=== PATIENT | male | born 1995 | race African-American/Black ===

== ENCOUNTER 2017-01-15 11:43 | Inpatient (IN) ==
[~2017-01-15 11:43] MED LIST: CALCIUM CHLORIDE 1,000 MG/10 ML SYRINGE IV ONE; CALCIUM GLUCONATE 1,000 MG/10 ML VIAL IV ONE
[2017-01-15] MEDS ORDERED: VANCOMYCIN 1,000 MG VIAL ONE ×2 (11:56→12:33)
[2017-01-15] MEDS ORDERED: TISSUE ADHESIVE 1 EACH APPLICATOR TOP ONE (11:56)
[2017-01-15] MEDS ORDERED: PAPAVERINE 60 MG/2 ML VIAL ONE (11:56)
[2017-01-15] MEDS ORDERED: PROPOFOL 1,000 MG/100 ML BOTTLE IV ONE (11:59)
[2017-01-15 12:06] LABS: Basophils % 0.5 % (0.0-0.8); Eosinophils # 0.2 10*3/uL (0.0-0.87); Eosinophils % 3.6 % (0.00-10.9); Hematocrit 30.2 VOL% (42.0-52.0); Hemoglobin 10.2 GM/DL (14.0-18.0); Immature Granulocytes % 0.3 %; Immature Granulocytes Absolute 0.02 #; Lymphocytes # 3.8 10*3/uL (1.4-4.0); Lymphocytes % 65.4 % (21.2-54.2); Mean Corpuscular HGB Conc 33.8 GM/DL (32-36); Mean Corpuscular Hemoglobin 32 PG (27-34); Mean Corpuscular Volume 93.2 FL (87-102); Mean Platelet Volume 9.8 FL (9.6-12.0); Monocytes # 0.5 10*3/uL (0.11-0.8); Neutrophils # 1.2 10*3/uL (1.4-7.4); Neutrophils % 21.2 % (38.7-73.9); Platelet Count 186 T/CUMM (130-400); Red Blood Count 3.24 MC/CUMM (3.8-5.5); White Blood Count 5.8 T/CUMM (4-12)
[2017-01-15] MEDS ORDERED: DIPH/TET/ACEL PERT BOOSTER VACCINE 0.5 ML VIAL IM ONE ×2 (12:09→12:15)
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
[2017-01-15 12:22] LABS: Apearance,Urine CLEAR (Clear); Bacteria,Urine Occasional /HPF (Few); Bilirubin,Urine Negative (Negative); Blood, Urine Negative (Negative); Glucose,Urine (UA) Negative (Negative); Hyaline Casts,Urine 1 /LPF (0-3); Ketones,Urine Negative (Negative); Mucus,Urine Many /LPF (Occasional); Nitrite,Urine Negative (Negative); Protein,Urine 30 MG/DL; RBC,Urine 2 /HPF (0-4); Urine Color Yellow (Yellow); Urine Specific Gravity 1.029 (1.001-1.035); Urine Urobilinogen < 2.0 EU/DL (0.2-1.0); WBC,Urine 1 /HPF (0-6)
[2017-01-15 12:26] LABS: Eosinophils 4 % (0-10); Hypochromasia 1+; Lymphocytes 62 % (20-55); Platelet Estimate Normal; Segmented Neutrophils 24 % (50-85); Total Cells Counted 100
[2017-01-15 12:30] LABS: Alanine Aminotransferase 21 U/L (16-61); Alkaline Phosphatase 47 U/L (45-117); Amylase 51 U/L (25-115); Aspartate Amino Transferase 25 U/L (0-37); Blood Urea Nitrogen 14 MG/DL (7-18); Calcium 7.7 MG/DL (8.5-10.1); Glucose 120 MG/DL (74-106); Potassium 3.7 MMOL/L (3.5-5.1); Sodium 143 MMOL/L (136-145); Total Protein 5.2 G/DL (6.4-8.3)
[2017-01-15 12:30] LABS: Barbiturates Screen,Urine Negative (Negative); Benzodiazepines Screen,Urine Negative (Negative); Cannabinoid Screen,Urine Negative (Negative); Opiate Screen,Urine Negative (Negative); Phencyclidine Screen,Urine Negative (Negative)
[2017-01-15] MEDS ORDERED: SUCCINYLCHOLINE 200 MG/10 ML VIAL ONE (12:30)
[2017-01-15] MEDS ORDERED: ETOMIDATE 20 MG/10 ML VIAL IV ONE (12:30)
[2017-01-15 12:33] LABS: ABG Base Excess -3.3 MMOL/L (-2.5-2.5); ABG HCO3 21.7 MMOL/L (20-26); ABG Oxygen Saturation 99.6 % (95-100); ABG PH 7.422 (7.35-7.45); ABG TCO2 18.1 MMOL/L (23-27); Glucose Heart Surgery 145 MG/DL (74-106); Hematocrit Heart Surgery 34.9 PERCENT (42-52); Hemoglobin Heart Surgery 11.3 G/DL (14.0-18.0); Ionized Calcium Arterial 1.04 MMOL/L (1.21-1.46); PH Patient Temp Arterial 7.422; Patient Temperature 37 CELCIUS; Potassium Heart/CVR 3.8 MMOL/L (3.5-5.1); Sodium Heart/CVR 138 MMOL/L (135-145)
[2017-01-15] MEDS ORDERED: MEROPENEM 1,000 MG VIAL IV ONE (12:39)
[2017-01-15 13:13] LABS: ABG Base Excess -4.1 MMOL/L (-2.5-2.5); ABG Oxygen Saturation 98.4 % (95-100); ABG PCO2 43.3 MM HG (35-48); ABG PH 7.315 (7.35-7.45); ABG TCO2 19.7 MMOL/L (23-27); Glucose Heart Surgery 178 MG/DL (74-106); Hematocrit Heart Surgery 37.5 PERCENT (42-52); Hemoglobin Heart Surgery 12.2 G/DL (14.0-18.0); Potassium Heart/CVR 4.6 MMOL/L (3.5-5.1)
[2017-01-15 13:22] LABS: Basophils % 0.1 % (0.0-0.8); Eosinophils # 0.1 10*3/uL (0.0-0.87); Eosinophils % 0.9 % (0.00-10.9); Hematocrit 35.5 VOL% (42.0-52.0); Hemoglobin 12.4 GM/DL (14.0-18.0); Immature Granulocytes % 0.4 %; Immature Granulocytes Absolute 0.03 #; Lymphocytes # 1.2 10*3/uL (1.4-4.0); Lymphocytes % 14.1 % (21.2-54.2); Mean Corpuscular HGB Conc 34.9 GM/DL (32-36); Mean Corpuscular Hemoglobin 32 PG (27-34); Mean Corpuscular Volume 91.7 FL (87-102); Mean Platelet Volume 8.8 FL (9.6-12.0); Monocytes # 0.6 10*3/uL (0.11-0.8); Monocytes % 7.1 % (1.7-12.7); Neutrophils # 6.6 10*3/uL (1.4-7.4); Neutrophils % 77.4 % (38.7-73.9); Platelet Count 142 T/CUMM (130-400); Red Blood Count 3.87 MC/CUMM (3.8-5.5); Red Cell Distribution Width 13.6 % (9.3-17.3); White Blood Count 8.5 T/CUMM (4-12)
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
[2017-01-15 13:38] LABS: Albumin 2.6 G/DL (3.4-5.0); Calcium 8.4 MG/DL (8.5-10.1); INR 1.2; Magnesium 1.5 MG/DL (1.8-2.4); PT Patient Result 12.7 SECS; Partial Thromboplastin Time 26.8 SECS (0-40); Phosphorous 3.9 MG/DL (2.5-4.9)
[2017-01-15 13:44] LABS: Lactic Acid 2.9 MMOL/L (0.4-2.0)
[2017-01-15] MEDS ORDERED: LACTATED RINGERS 1,000 ML IV SCH (15:00)
[2017-01-15] MEDS ORDERED: LACTATED RINGERS 1,000 ML IV ONE ×2 (15:00→15:22)
[2017-01-15] MEDS ORDERED: PHENYLEPHRINE DRIP 40 MG/250 ML PREMIX IV ONE (15:01)
--- NOTE | 2017-01-15 15:04 | Anesthesia Post-Op ---
Anesthesia Post OP - Post Ansesthetic Evaluation Patient seen in post op: Yes Resp: within normal limits (pt remains on ventilator) CV: within normal limits Mental: within normal limits (pt remains sedate) Temp: within normal limits (not warm, have asked for warmer to be applied) Zagl-Lo-Peyzvftnb: within normal limits Nausea and Vomiting: within normal limits Pain: within normal limits
[2017-01-15 15:11] LABS: ABG Base Excess -0.6 MMOL/L (-2.5-2.5); ABG HCO3 23.8 MMOL/L (20-26); ABG PCO2 42.6 MM HG (35-48); ABG PH 7.373 (7.35-7.45); ABG PO2 70.9 MM HG (80-95); ABG TCO2 21.3 MMOL/L (23-27); Glucose Heart Surgery 128 MG/DL (74-106); Hematocrit Heart Surgery 44.1 PERCENT (42-52); Hemoglobin Heart Surgery 14.4 G/DL (14.0-18.0); Potassium Heart/CVR 5.8 MMOL/L (3.5-5.1)
[2017-01-15 15:14] LABS: Basophils % 0.1 % (0.0-0.8); Eosinophils # 0.1 10*3/uL (0.0-0.87); Eosinophils % 0.9 % (0.00-10.9); Hematocrit 40.6 VOL% (42.0-52.0); Hemoglobin 14.5 GM/DL (14.0-18.0); Immature Granulocytes % 0.4 %; Immature Granulocytes Absolute 0.03 #; Lymphocytes # 1.4 10*3/uL (1.4-4.0); Lymphocytes % 16.5 % (21.2-54.2); Mean Corpuscular HGB Conc 35.7 GM/DL (32-36); Mean Corpuscular Hemoglobin 32 PG (27-34); Mean Corpuscular Volume 89.2 FL (87-102); Mean Platelet Volume 9.3 FL (9.6-12.0); Monocytes # 0.3 10*3/uL (0.11-0.8); Monocytes % 3.3 % (1.7-12.7); Neutrophils # 6.7 10*3/uL (1.4-7.4); Neutrophils % 78.8 % (38.7-73.9); Platelet Count 181 T/CUMM (130-400); Red Blood Count 4.55 MC/CUMM (3.8-5.5); Red Cell Distribution Width 13.5 % (9.3-17.3); White Blood Count 8.5 T/CUMM (4-12)
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
[2017-01-15] MEDS ORDERED: SEVOFLURANE 1 UNIT/15 MINUTE INH ONE (15:21)
[2017-01-15] MEDS ORDERED: SODIUM CHLORIDE 0.9% 1,000 ML IV ONE (15:22)
[2017-01-15] MEDS ORDERED: MIDAZOLAM 10 MG/2 ML VIAL ONE (15:22)
[2017-01-15] MEDS ORDERED: SUFentanil 250 MCG/5 ML AMP ONE (15:22)
[2017-01-15] MEDS ORDERED: VECURONIUM 10 MG VIAL IV ONE (15:22)
[2017-01-15] MEDS: PHENYLEPHRINE DRIP 40 MG/250 ML PREMIX IV SCH (15:25)
[2017-01-15 15:36] LABS: Albumin 2.9 G/DL (3.4-5.0); Bilirubin,Total 1.6 MG/DL (0.2-1.0); Calcium 9.4 MG/DL (8.5-10.1); Osmolality,Calculated 284.1 MOS/KG (273-304); Potassium 5.9 MMOL/L (3.5-5.1); Total Protein 5.4 G/DL (6.4-8.3)
[2017-01-15 15:53] LABS: INR 1.2; PT Patient Result 12.3 SECS; Partial Thromboplastin Time 26.6 SECS (0-40)
[2017-01-15] MEDS ORDERED: ALBUMIN 5% 12.5 GM/250 ML VIAL IV ONE (16:24)
[2017-01-15] MEDS ORDERED: ONDANSETRON 4 MG/2 ML VIAL IV PRN (16:24)
[2017-01-15] MEDS ORDERED: ALBUMIN 5% 25 GM in PREMIX 1 EACH IV ONE (16:42)
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
[2017-01-15] MEDS: HYDROmorphone 2 MG/1 ML VIAL IV PRN ×2 (19:00→23:46)
[2017-01-15] MEDS ORDERED: HYDROmorphone 2 MG/1 ML VIAL IV ONE (19:23)
[2017-01-15] MEDS: PROPOFOL 1,000 MG/100 ML BOTTLE IV SCH ×3 (20:14→23:59)
[2017-01-15] MEDS: SODIUM CHLORIDE 0.9% 1,000 ML IV SCH (23:01)
[2017-01-15 23:03] LABS: ABG Base Excess 0.1 MMOL/L (-2.5-2.5); ABG HCO3 24.5 MMOL/L (20-26); ABG Oxygen Saturation 99.3 % (95-100); ABG PCO2 45.9 MM HG (35-48); ABG PH 7.361 (7.35-7.45); ABG TCO2 22.6 MMOL/L (23-27)
[2017-01-16 03:57] LABS: Basophils % 0.1 % (0.0-0.8); Eosinophils # 0.1 10*3/uL (0.0-0.87); Eosinophils % 1.5 % (0.00-10.9); Hematocrit 38.6 VOL% (42.0-52.0); Hemoglobin 13.6 GM/DL (14.0-18.0); Immature Granulocytes % 0.3 %; Immature Granulocytes Absolute 0.02 #; Lymphocytes # 0.8 10*3/uL (1.4-4.0); Lymphocytes % 9.8 % (21.2-54.2); Mean Corpuscular HGB Conc 35.2 GM/DL (32-36); Mean Corpuscular Hemoglobin 31 PG (27-34); Mean Corpuscular Volume 87.5 FL (87-102); Mean Platelet Volume 9.6 FL (9.6-12.0); Monocytes # 0.7 10*3/uL (0.11-0.8); Monocytes % 9.1 % (1.7-12.7); Neutrophils # 6.2 10*3/uL (1.4-7.4); Neutrophils % 79.2 % (38.7-73.9); Platelet Count 166 T/CUMM (130-400); Red Blood Count 4.41 MC/CUMM (3.8-5.5); Red Cell Distribution Width 13.6 % (9.3-17.3); White Blood Count 7.8 T/CUMM (4-12)
[2017-01-16 04:26] LABS: Calcium 7.9 MG/DL (8.5-10.1); Osmolality,Calculated 287.6 MOS/KG (273-304); Potassium 3.8 MMOL/L (3.5-5.1)
[2017-01-16 04:55] LABS: ABG Base Excess -0.2 MMOL/L (-2.5-2.5); ABG HCO3 24.9 MMOL/L (20-26); ABG PCO2 42.4 MM HG (35-48); ABG PH 7.387 (7.35-7.45); ABG PO2 212.1 MM HG (80-95); ABG TCO2 26.2 MMOL/L (23-27)
[2017-01-16] MEDS: PROPOFOL 1,000 MG/100 ML BOTTLE IV SCH ×5 (06:02→23:35)
[2017-01-16] MEDS: HYDROmorphone 2 MG/1 ML VIAL IV PRN ×8 (06:09→23:59)
[2017-01-16] MEDS: SODIUM CHLORIDE 0.9% 1,000 ML IV SCH ×4 (06:10→22:25)
--- NOTE | 2017-01-16 06:39 | EKG Report ---
Stationary ECG Study [facility] Test Date: 01/16/2017 6:38:03 AM Pat Name: SHELLY BALBUENA Department: Room: 112 Gender: M Employee Relations Advisor: LAURA : 1995 Requested by: Lucio Rodriguez Order Number: [id number] Reading MD: USMAN STEPHENSON Intervals [place] Rate: 82 P: 66 VT: 155 QRS: 73 QRSD: 80 T: 76 QT: 359 QTc: 398 Interpretive Statements SINUS RHYTHM EARLY REPOLARIZATION Electronically Signed On 01-16-17 12:29:22 CDT by USMAN STEPHENSON [email or web address]
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
[2017-01-16] MEDS ORDERED: MAGNESIUM SULF RIDER 4 GM in PREMIX 1 EACH IV ONE (07:31)
[2017-01-16] MEDS ORDERED: MAGNESIUM SULF RIDER 2 GM in PREMIX 1 EACH IV PRN (07:33)
[2017-01-16] MEDS ORDERED: MAGNESIUM SULF RIDER 4 GM in PREMIX 1 EACH IV PRN (07:34)
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
[2017-01-16] MEDS: PANTOPRAZOLE 40 MG VIAL IV SCH (08:32)
[2017-01-16] MEDS ORDERED: PANTOPRAZOLE 40 MG TABLET PO SCH (09:00)
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
[2017-01-16] MEDS: PHENYLEPHRINE DRIP 40 MG/250 ML PREMIX IV SCH (15:32)
[2017-01-16 22:53] LABS: Hematocrit 34.4 VOL% (42.0-52.0); Hemoglobin 12.4 GM/DL (14.0-18.0)
[2017-01-17] MEDS: HYDROmorphone 2 MG/1 ML VIAL IV PRN ×7 (02:54→22:10)
[2017-01-17 04:34] LABS: ABG Base Excess -0.1 MMOL/L (-2.5-2.5); ABG HCO3 24.6 MMOL/L (20-26); ABG Oxygen Saturation 95.1 % (95-100); ABG PCO2 40.8 MM HG (35-48); ABG PH 7.399 (7.35-7.45); ABG TCO2 25.9 MMOL/L (23-27)
[2017-01-17 04:38] LABS: Basophils % 0.2 % (0.0-0.8); Eosinophils # 0.5 10*3/uL (0.0-0.87); Eosinophils % 3.8 % (0.00-10.9); Hematocrit 33.7 VOL% (42.0-52.0); Hemoglobin 12.2 GM/DL (14.0-18.0); Immature Granulocytes % 0.6 %; Immature Granulocytes Absolute 0.07 #; Lymphocytes # 1.1 10*3/uL (1.4-4.0); Lymphocytes % 9.3 % (21.2-54.2); Mean Corpuscular HGB Conc 36.2 GM/DL (32-36); Mean Corpuscular Hemoglobin 31 PG (27-34); Mean Corpuscular Volume 86.9 FL (87-102); Mean Platelet Volume 9.4 FL (9.6-12.0); Monocytes % 8.2 % (1.7-12.7); Neutrophils # 9.6 10*3/uL (1.4-7.4); Neutrophils % 77.9 % (38.7-73.9); Platelet Count 138 T/CUMM (130-400); Red Blood Count 3.88 MC/CUMM (3.8-5.5); Red Cell Distribution Width 13.7 % (9.3-17.3); White Blood Count 12.3 T/CUMM (4-12)
[2017-01-17 05:12] LABS: Calcium 8.1 MG/DL (8.5-10.1)
[2017-01-17 05:13] LABS: Osmolality,Calculated 279.1 MOS/KG (273-304); Potassium 3.9 MMOL/L (3.5-5.1)
[2017-01-17 05:43] LABS: Band Neutrophils 8 % (0-10); Eosinophils 1 % (0-10); Hypochromasia 1+; Lymphocytes 10 % (20-55); Segmented Neutrophils 77 % (50-85); Total Cells Counted 100
[2017-01-17 05:44] LABS: Microcytosis Slight; Platelet Estimate Adequate
[2017-01-17] MEDS: PROPOFOL 1,000 MG/100 ML BOTTLE IV SCH ×4 (06:19→19:54)
[2017-01-17] MEDS: SODIUM CHLORIDE 0.9% 1,000 ML IV SCH ×4 (06:20→22:18)
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
--- NOTE | 2017-01-17 09:14 | XRay Report ---
History: Shortness of breath Date: 01/17/2017 at 3:01 AM Study: Chest x-ray AP portable Comparison exam: 01/17/2017 at 12:25 AM The endotracheal tube, nasogastric tube, and chest tubes are stable in position. There is no pneumothorax. There is persistent but improved left lower lobe atelectasis. The post traumatic/postsurgical change in the right mid to upper lung persists without change. The cardiomediastinal silhouette is similar. There is no increasing pleural effusion. Osseous structures are similar. Impression: Persistent but improved left lower lobe atelectasis. Otherwise unchanged PROCEDURE INTERPRETED AT [facility] DEPARTMENT OF RADIOLOGY Final Report Signed by: Dr. Liz Easley
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
[2017-01-17] MEDS: PANTOPRAZOLE 40 MG VIAL IV SCH (10:20)
[2017-01-18] MEDS: HYDROmorphone 2 MG/1 ML VIAL IV PRN ×6 (00:55→20:20)
[2017-01-18 03:41] LABS: ABG Base Excess 0.9 MMOL/L (-2.5-2.5); ABG HCO3 25.2 MMOL/L (20-26); ABG Oxygen Saturation 93.5 % (95-100); ABG PCO2 44.3 MM HG (35-48); ABG PH 7.381 (7.35-7.45); ABG TCO2 24.2 MMOL/L (23-27); Basophils % 0.1 % (0.0-0.8); Eosinophils # 0.3 10*3/uL (0.0-0.87); Eosinophils % 3.1 % (0.00-10.9); Hematocrit 30.3 VOL% (42.0-52.0); Hemoglobin 10.7 GM/DL (14.0-18.0); Immature Granulocytes % 0.5 %; Immature Granulocytes Absolute 0.05 #; Lymphocytes # 0.7 10*3/uL (1.4-4.0); Lymphocytes % 6.5 % (21.2-54.2); Mean Corpuscular HGB Conc 35.3 GM/DL (32-36); Mean Corpuscular Hemoglobin 31 PG (27-34); Mean Corpuscular Volume 88.1 FL (87-102); Mean Platelet Volume 9.7 FL (9.6-12.0); Monocytes # 0.7 10*3/uL (0.11-0.8); Monocytes % 6.3 % (1.7-12.7); Neutrophils # 9.1 10*3/uL (1.4-7.4); Neutrophils % 83.5 % (38.7-73.9); Platelet Count 133 T/CUMM (130-400); Red Blood Count 3.44 MC/CUMM (3.8-5.5); Red Cell Distribution Width 13.3 % (9.3-17.3); White Blood Count 10.9 T/CUMM (4-12)
[2017-01-18] MEDS: PROPOFOL 1,000 MG/100 ML BOTTLE IV SCH ×5 (04:00→20:08)
[2017-01-18 04:02] LABS: Band Neutrophils 2 % (0-10); Eosinophils 4 % (0-10); Lymphocytes 7 % (20-55); Segmented Neutrophils 84 % (50-85); Total Cells Counted 100
[2017-01-18 04:04] LABS: Anisocytosis Slight; Microcytosis Slight; Ovalocytes Few; Platelet Estimate Normal
[2017-01-18 04:13] LABS: Calcium 7.7 MG/DL (8.5-10.1); Magnesium 1.6 MG/DL (1.8-2.4)
[2017-01-18 04:14] LABS: Potassium 3.7 MMOL/L (3.5-5.1)
[2017-01-18] MEDS: SODIUM CHLORIDE 0.9% 1,000 ML IV SCH ×2 (06:23→16:38)
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
[2017-01-18] MEDS: PANTOPRAZOLE 40 MG VIAL IV SCH (08:40)
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
--- NOTE | 2017-01-18 09:14 | XRay Report ---
Portable chest Exam date: 01/18/2017 4:00 AM Indication: Shortness of breath, cough Comparison: January 17, 2017 at 0258 hours Findings: Cardiomediastinal contours are stable with no change in tube or line placement. Right midlung consolidation is stable. Worsening left pleural effusion. Generalized increased interstitial pattern. No acute osseous abnormalities. Visualized upper abdomen demonstrates no acute pathology. Impression: 1. Stable right midlung consolidation 2. Worsening left pleural effusion 3. Generalized increased interstitial prominence PROCEDURE INTERPRETED AT [facility] DEPARTMENT OF RADIOLOGY Final Report Signed by: Saulo Velazquez
[2017-01-18] MEDS: ACETAMINOPHEN 325 MG TABLET PO PRN (10:59)
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
[2017-01-18] MEDS ORDERED: GLUCAGON 1 MG VIAL IM PRN (12:43)
[2017-01-18] MEDS ORDERED: DEXTROSE 50% 25 GM/50 ML VIAL IV PRN (12:43)
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
--- NOTE | 2017-01-18 13:50 | Event Note ---
I saw the patient this morning. He is stable. Does not appear that he is ready for extubation. I have instructed them to start tube feedings. He will be fitted for a TLSO brace today or tomorrow. Once he has the brace we can get him up.
[2017-01-18] MEDS: INSULIN REGULAR 100 UNIT/ML SUBCUT SCH (17:49)
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
[2017-01-19] MEDS: INSULIN REGULAR 100 UNIT/ML SUBCUT SCH ×2 (00:06→07:22)
[2017-01-19] MEDS: PROPOFOL 1,000 MG/100 ML BOTTLE IV SCH ×2 (00:42→07:13)
[2017-01-19] MEDS: SODIUM CHLORIDE 0.9% 1,000 ML IV SCH ×3 (01:20→18:34)
[2017-01-19] MEDS ORDERED: HEPARIN/NACL 0.9% 2 UNITS/ML 500 ML IV ONE (04:13)
[2017-01-19 05:57] LABS: ABG Base Excess 3.7 MMOL/L (-2.5-2.5); ABG HCO3 27.7 MMOL/L (20-26); ABG Oxygen Saturation 97.3 % (95-100); ABG PH 7.451 (7.35-7.45); ABG PO2 96.6 MM HG (80-95); ABG TCO2 25.4 MMOL/L (23-27)
[2017-01-19 06:28] LABS: Phosphorous 2.2 MG/DL (2.5-4.9); Prealbumin 7.3 MG/DL (20-40)
--- NOTE | 2017-01-19 07:11 | Event Note ---
He appears stable. He appears to be weaning from the ventilator and hopefully will be extubated in the next day or 2. I have had him on tube feeds. Once he gets his brace we can get him up.
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
[2017-01-19] MEDS: HYDROmorphone 2 MG/1 ML VIAL IV PRN ×3 (07:39→23:12)
[2017-01-19] MEDS: ALBUTEROL/IPRATROPIUM 3 ML NEB RESP TX SCH ×3 (08:30→19:49)
--- NOTE | 2017-01-19 09:11 | XRay Report ---
Portable chest Exam date: 01/19/2017 3:01 AM Indication: Shortness of breath, cough Comparison: Previous day at 1205 hours Findings: Postoperative changes again noted along the lower thorax. Cardiomediastinal contours are stable. Right chest tube has been removed. Remaining tubes and lines remain in satisfactory position. Persistent right midlung density with clearing of the alveolar consolidation throughout the left lung. No acute osseous abnormalities. Visualized upper abdomen demonstrates no acute pathology. Impression: 1. Uncomplicated right chest tube removal 2. Partial clearing of the left lung consolidation PROCEDURE INTERPRETED AT [facility] DEPARTMENT OF RADIOLOGY Final Report Signed by: Saulo Velazquez
[2017-01-19] MEDS: PANTOPRAZOLE 40 MG VIAL IV SCH (09:13)
[2017-01-19] MEDS: ACETAMINOPHEN 325 MG TABLET PO PRN (09:13)
[2017-01-19] MEDS ORDERED: ALPRAZolam 0.5 MG TABLET PO ONE (10:29)
[2017-01-20] MEDS: ALBUTEROL/IPRATROPIUM 3 ML NEB RESP TX SCH ×4 (00:26→19:47)
[2017-01-20] MEDS: SODIUM CHLORIDE 0.9% 1,000 ML IV SCH ×2 (03:13→08:02)
[2017-01-20] MEDS: HYDROmorphone 2 MG/1 ML VIAL IV PRN ×2 (05:04→22:21)
--- NOTE | 2017-01-20 06:57 | Event Note ---
He looks good since he was extubated. He is hungry. We will advance his diet as he has been tolerating liquids. He has his brace in place and we can look at getting him up and working with physical therapy. Dr. Hussein plans to get his last chest tube out today. We will get his Hodge catheter out.
--- NOTE | 2017-01-20 07:43 | XRay Report ---
Portable chest Exam date: 01/20/2017 1:38 AM Indication: Shortness of breath, cough Comparison: Previous day at 0328 hours Findings: Cardiomediastinal contours are stable. Interval extubation and removal of the esophageal gastric tube. Remaining tubes and lines are unchanged. Stable right mid lung density with worsening bilateral central and lower lobe hazy alveolar consolidations. No acute osseous abnormalities. Visualized upper abdomen demonstrates no acute pathology. Impression: 1. Interval extubation and removal of esophageal gastric tube 2. Stable parenchymal density within the right midlung 3. Worsening bilateral central and lower lobe airspace consolidations. PROCEDURE INTERPRETED AT [facility] DEPARTMENT OF RADIOLOGY Final Report Signed by: Saulo Velazquez
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
[2017-01-20] MEDS ORDERED: FUROSEMIDE 20 MG/2 ML VIAL IV ONE (07:59)
[2017-01-20 09:48] LABS: Basophils % 0.4 % (0.0-0.8); Eosinophils # 0.2 10*3/uL (0.0-0.87); Eosinophils % 2.4 % (0.00-10.9); Hematocrit 30.1 VOL% (42.0-52.0); Hemoglobin 10.6 GM/DL (14.0-18.0); Immature Granulocytes % 0.3 %; Immature Granulocytes Absolute 0.03 #; Lymphocytes # 0.6 10*3/uL (1.4-4.0); Lymphocytes % 6.4 % (21.2-54.2); Mean Corpuscular HGB Conc 35.2 GM/DL (32-36); Mean Corpuscular Hemoglobin 31 PG (27-34); Mean Corpuscular Volume 88.3 FL (87-102); Mean Platelet Volume 9.4 FL (9.6-12.0); Monocytes # 0.7 10*3/uL (0.11-0.8); Monocytes % 7.2 % (1.7-12.7); Neutrophils # 8.3 10*3/uL (1.4-7.4); Neutrophils % 83.3 % (38.7-73.9); Platelet Count 195 T/CUMM (130-400); Red Blood Count 3.41 MC/CUMM (3.8-5.5); Red Cell Distribution Width 13.3 % (9.3-17.3); White Blood Count 9.9 T/CUMM (4-12)
[2017-01-20] MEDS: PANTOPRAZOLE 40 MG VIAL IV SCH (09:53)
[2017-01-20 10:09] LABS: Band Neutrophils 4 % (0-10); Eosinophils 4 % (0-10); Giant Platelets Few; Hypochromasia 1+; Lymphocytes 6 % (20-55); Microcytosis Slight; Ovalocytes Slight; Platelet Estimate Adequate; Segmented Neutrophils 77 % (50-85); Total Cells Counted 100
[2017-01-20 10:19] LABS: Albumin 2.1 G/DL (3.4-5.0); Bilirubin,Total 1.8 MG/DL (0.2-1.0); Osmolality,Calculated 283.1 MOS/KG (273-304); Potassium 3.5 MMOL/L (3.5-5.1); Total Protein 5.3 G/DL (6.4-8.3)
[2017-01-20] MEDS: ACETAMINOPHEN 325 MG TABLET PO PRN (16:25)
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
--- NOTE | 2017-01-20 18:34 | XRay Report ---
History: Postop chest tube removal. Date: 01/20/2017 at 4:20 PM Study: Chest x-ray AP portable Comparison exam: 01/20/2017 at 3:16 AM The left chest tube has been removed since the earlier study. There is a moderate-sized pneumothorax on the left, which the nursing staff is aware of. There is continued edema/infiltrate in the lower lungs. The cardiac silhouette is upper normal. The mediastinal contours are stable. Osseous structures are unchanged. Skin pito overlie the chest bilaterally. Impression: Moderate left pneumothorax following chest tube removal. The patient is scheduled for follow-up chest x-ray at 7:00 PM tonight, according to the nursing staff PROCEDURE INTERPRETED AT [facility] DEPARTMENT OF RADIOLOGY Final Report Signed by: Dr. Liz Easley
--- NOTE | 2017-01-20 19:18 | XRay Report ---
History: Left pneumothorax. Chest tube removal Date: 01/20/2017 at 6:48 PM Study: Chest x-ray single view portable Comparison exam: 01/20/2017 at 4:20 PM The moderate-sized pneumothorax on the left persists and is grossly similar when accounting for slight differences in positioning. The bibasilar edema/infiltrate persists without change. There is no change in the cardiomediastinal silhouette. Osseous structures are similar. Impression: Persistent moderate-sized pneumothorax on the left without gross overall change from the earlier study PROCEDURE INTERPRETED AT [facility] DEPARTMENT OF RADIOLOGY Final Report Signed by: Dr. Liz Easley
[2017-01-21] MEDS: ALBUTEROL/IPRATROPIUM 3 ML NEB RESP TX SCH ×4 (01:26→19:38)
[2017-01-21] MEDS: HYDROmorphone 2 MG/1 ML VIAL IV PRN ×4 (02:11→14:39)
[2017-01-21 05:39] LABS: Basophils # 0.1 10*3/uL (0.0-0.2); Basophils % 0.4 % (0.0-0.8); Eosinophils # 0.3 10*3/uL (0.0-0.87); Eosinophils % 2.5 % (0.00-10.9); Hematocrit 31.5 VOL% (42.0-52.0); Hemoglobin 10.9 GM/DL (14.0-18.0); Immature Granulocytes % 0.7 %; Lymphocytes # 1.3 10*3/uL (1.4-4.0); Lymphocytes % 9.4 % (21.2-54.2); Mean Corpuscular HGB Conc 34.6 GM/DL (32-36); Mean Corpuscular Hemoglobin 30 PG (27-34); Mean Corpuscular Volume 87.7 FL (87-102); Mean Platelet Volume 9.3 FL (9.6-12.0); Monocytes # 1.4 10*3/uL (0.11-0.8); NRBC # 0.02 10*3/uL; Neutrophils # 10.4 10*3/uL (1.4-7.4); Platelet Count 228 T/CUMM (130-400); Red Blood Count 3.59 MC/CUMM (3.8-5.5); White Blood Count 13.5 T/CUMM (4-12)
[2017-01-21 06:31] LABS: Calcium 8.3 MG/DL (8.5-10.1); Osmolality,Calculated 277.5 MOS/KG (273-304); Potassium 3.7 MMOL/L (3.5-5.1)
[2017-01-21 07:26] LABS: Band Neutrophils 1 % (0-10); Eosinophils 2 % (0-10); Lymphocytes 10 % (20-55); Segmented Neutrophils 79 % (50-85); Total Cells Counted 100
[2017-01-21 07:27] LABS: Giant Platelets Few; Hypochromasia 1+; Microcytosis Slight; Ovalocytes Slight; Platelet Estimate Adequate
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
--- NOTE | 2017-01-21 08:09 | XRay Report ---
XR chest 1V portable Indication: Chest tube removal Comparison: 20 January 2017 Findings: The heart and mediastinum are similar in size and configuration. Pneumothorax is present on the left similar in size when accounting for technique difference. Bilateral pulmonary density is present similar to previous exam. Impression: Pneumothorax on the left similar to previous study. No other definite changes. PROCEDURE INTERPRETED AT [facility] DEPARTMENT OF RADIOLOGY Final Report Signed by: Dr. Ray Morales
[2017-01-21] MEDS: PANTOPRAZOLE 40 MG TABLET PO SCH (08:34)
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
[2017-01-21] MEDS: diphenhydrAMINE CAP 50 MG CAPSULE PO PRN (21:12)
[2017-01-22] MEDS: ALBUTEROL/IPRATROPIUM 3 ML NEB RESP TX SCH ×4 (00:15→19:47)
[2017-01-22] MEDS: HYDROmorphone 2 MG/1 ML VIAL IV PRN ×7 (01:42→23:52)
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
[2017-01-22] MEDS: PANTOPRAZOLE 40 MG TABLET PO SCH (09:00)
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
[2017-01-22] MEDS: oxyCODONE/ACETAMINOPHEN 5-325 MG TABLET PO PRN (13:56)
[2017-01-23] MEDS: ALBUTEROL/IPRATROPIUM 3 ML NEB RESP TX SCH ×4 (01:14→18:50)
[2017-01-23] MEDS: oxyCODONE/ACETAMINOPHEN 5-325 MG TABLET PO PRN ×4 (01:15→22:08)
[2017-01-23] MEDS: diphenhydrAMINE CAP 50 MG CAPSULE PO PRN ×2 (01:17→20:22)
[2017-01-23] MEDS: HYDROmorphone 2 MG/1 ML VIAL IV PRN ×6 (03:04→20:19)
[2017-01-23 06:31] LABS: Basophils % 0.3 % (0.0-0.8); Eosinophils # 0.5 10*3/uL (0.0-0.87); Hematocrit 33.3 VOL% (42.0-52.0); Hemoglobin 11.6 GM/DL (14.0-18.0); Immature Granulocytes % 2.1 %; Immature Granulocytes Absolute 0.34 #; Lymphocytes # 1.9 10*3/uL (1.4-4.0); Lymphocytes % 11.9 % (21.2-54.2); Mean Corpuscular HGB Conc 34.8 GM/DL (32-36); Mean Corpuscular Hemoglobin 31 PG (27-34); Mean Corpuscular Volume 88.6 FL (87-102); Mean Platelet Volume 9.3 FL (9.6-12.0); Monocytes # 2.1 10*3/uL (0.11-0.8); Monocytes % 13.1 % (1.7-12.7); NRBC # 0.05 10*3/uL; Neutrophils % 69.6 % (38.7-73.9); Platelet Count 328 T/CUMM (130-400); Red Blood Count 3.76 MC/CUMM (3.8-5.5); Red Cell Distribution Width 13.1 % (9.3-17.3); White Blood Count 15.9 T/CUMM (4-12)
[2017-01-23 06:56] LABS: Calcium 8.4 MG/DL (8.5-10.1); Potassium 3.7 MMOL/L (3.5-5.1)
[2017-01-23 07:57] LABS: Hypochromasia 1+; Macrocytosis 1+; Polychromasia Slight
[2017-01-23] MEDS: PANTOPRAZOLE 40 MG TABLET PO SCH (08:50)
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
[2017-01-24] MEDS: ALBUTEROL/IPRATROPIUM 3 ML NEB RESP TX SCH ×4 (00:23→19:39)
[2017-01-24] MEDS: oxyCODONE/ACETAMINOPHEN 5-325 MG TABLET PO PRN ×5 (02:03→20:52)
--- NOTE | 2017-01-24 08:22 | Event Note ---
He looks and feels well. From my standpoint he should be good for discharge tomorrow. He is tolerating a diet and ambulating with a walker.
[2017-01-24] MEDS: PANTOPRAZOLE 40 MG TABLET PO SCH (09:02)
--- NOTE | 2017-01-24 11:12 | Event Note ---
Patient appears stable. Room air O2 sat in the upper 90s. Stop oxygen. Stable from pulmonary standpoint. We will sign off.
[2017-01-25] MEDS: ALBUTEROL/IPRATROPIUM 3 ML NEB RESP TX SCH ×4 (00:43→19:17)
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
[2017-01-25 07:19] LABS: Basophils # 0.1 10*3/uL (0.0-0.2); Basophils % 0.3 % (0.0-0.8); Eosinophils # 0.3 10*3/uL (0.0-0.87); Eosinophils % 1.4 % (0.00-10.9); Hematocrit 35.7 VOL% (42.0-52.0); Hemoglobin 12.7 GM/DL (14.0-18.0); Immature Granulocytes % 2.7 %; Immature Granulocytes Absolute 0.52 #; Lymphocytes # 1.4 10*3/uL (1.4-4.0); Lymphocytes % 7.3 % (21.2-54.2); Mean Corpuscular HGB Conc 35.6 GM/DL (32-36); Mean Corpuscular Hemoglobin 31 PG (27-34); Mean Corpuscular Volume 86.2 FL (87-102); Mean Platelet Volume 9.1 FL (9.6-12.0); Monocytes # 2.3 10*3/uL (0.11-0.8); Monocytes % 11.7 % (1.7-12.7); Neutrophils # 14.8 10*3/uL (1.4-7.4); Neutrophils % 76.6 % (38.7-73.9); Red Blood Count 4.14 MC/CUMM (3.8-5.5); Red Cell Distribution Width 12.8 % (9.3-17.3); White Blood Count 19.3 T/CUMM (4-12)
[2017-01-25 07:20] LABS: Platelet Count 684 T/CUMM (130-400)
[2017-01-25 07:41] LABS: Band Neutrophils 5 % (0-10); Eosinophils 2 % (0-10); Giant Platelets Few; Hypochromasia 1+; Lymphocytes 3 % (20-55); Microcytosis Slight; Platelet Estimate Increased; Segmented Neutrophils 86 % (50-85); Total Cells Counted 100
[2017-01-25] MEDS: PANTOPRAZOLE 40 MG TABLET PO SCH (09:00)
[2017-01-25 10:12] LABS: Apearance,Urine CLEAR (Clear); Bacteria,Urine Occasional /HPF (Few); Bilirubin,Urine Negative (Negative); Blood, Urine Negative (Negative); Glucose,Urine (UA) Negative (Negative); Ketones,Urine Negative (Negative); Mucus,Urine Occasional /LPF (Occasional); Nitrite,Urine Negative (Negative); Protein,Urine 30 MG/DL; RBC,Urine 1 /HPF (0-4); Urine Color Dark yellow (Yellow); Urine Specific Gravity 1.015 (1.001-1.035); WBC,Urine 1 /HPF (0-6)
[2017-01-25] MEDS: oxyCODONE/ACETAMINOPHEN 5-325 MG TABLET PO PRN ×2 (11:26→21:37)
--- NOTE | 2017-01-25 15:00 | Event Note ---
UA without evidence of infection. With tachypnea and leukocytosis, CXR ordered and Dr. Hussein re-consulted and notified. Also requested he address if ok to start lovenox.
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
--- NOTE | 2017-01-25 15:26 | XRay Report ---
2 view chest. Indication: Shortness of breath. Comparison: January 23, 2017. The heart is normal in size. The pulmonary vasculature is normal. There are bilateral infiltrates, and there is pleural effusion also present on the right. A suture line is seen in the right upper lobe. Aeration is improved compared to the exam from 2 days ago. There is gaseous distention of bowel. Surgical skin pito project over the lower thorax anteriorly. The osseous structures are unremarkable. Impression: Interval improvement. PROCEDURE INTERPRETED AT [facility] DEPARTMENT OF RADIOLOGY Final Report Signed by: Dr. Christiane Joseph
[2017-01-25] MEDS: LEVOFLOXACIN 750 MG TABLET PO SCH (15:53)
[2017-01-25] MEDS: diphenhydrAMINE CAP 50 MG CAPSULE PO PRN (21:40)
[2017-01-26] MEDS: ALBUTEROL/IPRATROPIUM 3 ML NEB RESP TX SCH ×3 (02:00→12:40)
[2017-01-26 05:37] LABS: Basophils # 0.1 10*3/uL (0.0-0.2); Basophils % 0.3 % (0.0-0.8); Eosinophils # 0.3 10*3/uL (0.0-0.87); Eosinophils % 1.6 % (0.00-10.9); Hematocrit 35.4 VOL% (42.0-52.0); Hemoglobin 12.5 GM/DL (14.0-18.0); Immature Granulocytes % 2.7 %; Immature Granulocytes Absolute 0.52 #; Lymphocytes # 1.6 10*3/uL (1.4-4.0); Lymphocytes % 8.3 % (21.2-54.2); Mean Corpuscular HGB Conc 35.3 GM/DL (32-36); Mean Corpuscular Hemoglobin 31 PG (27-34); Mean Corpuscular Volume 86.8 FL (87-102); Monocytes # 2.1 10*3/uL (0.11-0.8); Monocytes % 11.2 % (1.7-12.7); Neutrophils # 14.4 10*3/uL (1.4-7.4); Neutrophils % 75.9 % (38.7-73.9); Platelet Count 792 T/CUMM (130-400); Red Blood Count 4.08 MC/CUMM (3.8-5.5); Red Cell Distribution Width 12.9 % (9.3-17.3)
[2017-01-26 06:02] LABS: Band Neutrophils 4 % (0-10); Eosinophils 3 % (0-10); Lymphocytes 7 % (20-55); Segmented Neutrophils 76 % (50-85); Total Cells Counted 100
[2017-01-26 06:03] LABS: Hypochromasia 1+; Microcytosis Slight
[2017-01-26 06:04] LABS: Platelet Estimate Increased
--- NOTE | 2017-01-26 06:52 | Event Note ---
He has no complaints. He had low-grade temperature and his vital signs are stable. His chest x-ray could represent pneumonia. This is being managed by Dr. Hussein. I will defer management of this to him. There are no general surgical issues at this time. My partners will be covering while I am out of town if needed.
[2017-01-26] MEDS: LEVOFLOXACIN 750 MG TABLET PO SCH (08:56)
[2017-01-26] MEDS: PANTOPRAZOLE 40 MG TABLET PO SCH (08:56)
[2017-01-26 11:38] VITALS: BP 118/69
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
== END 2017-01-26 15:45 | disposition home or self-care (01) | DRG 163 ==
LOC: SUATTDRO → EDBD → N.ED 11:43 → N.ICU 12:13 → N.ED 14:32 → N.ICU 14:38 → N.ED 14:38 → N.ICU 14:50 → N.4E 01-22 13:18
PROVIDERS: ADMIT Surgery; ATTEND Surgery